=== PATIENT | female | born 1955 | race Caucasian/White ===

== ENCOUNTER 2020-04-11 10:23 | Emergency (ER) | payer SELFPAY ==
[~2020-04-11] VITALS: Ht 160 cm; Wt 52.9 kg
--- NOTE | 2020-04-11 11:16 | NUR ---
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
--- NOTE | 2020-04-11 11:35 | NUR ---
THIS IS A 65 YO F W/ C/O DEPRESSION, INSOMNIA, UNABLE TO EAT, WEAKNESS AND LT SIDED LEG PAIN X2 WEEKS. PT REPORTS SHE LOST HER 6 MONTHS AGO AND BELIEVES HER GRIEF HAS CAUGHT UP TO HER. PT REPORTS FALL 2 WEEKS AGO IN WHICH SHE TWISTED HER ANKLE AND HAS HAD ANKLE/LEG PAIN EVER SINCE. PT REPORTS HX OF TAKING LEXAPRO BUT IS NOT CURRENTLY ON ANY MOOD STABLIZERS. DENIES SI/HI. PT TACHYCARDIC, OTHER VS WDL. PT RESTING ON GURNEY W/ CALL LIGHT IN REACH AND FAMILY AT BEDSIDE. AWAITING ED EVAL.
[2020-04-11] MEDS ORDERED: LOSARTAN (11:43)
[2020-04-11] MEDS ORDERED: ATORVASTATIN (11:43)
[2020-04-11] MEDS ORDERED: HYDROCHLOROTHIAZIDE (11:43)
[2020-04-11] MEDS ORDERED: hydrOXyzine 50MG TABLET ONE (12:00)
[2020-04-11 12:24] VITALS: BP 95/69
== END 2020-04-11 12:27 | disposition home or self-care (01) ==
LOC: ED 12:21
DX: F41.1 Generalized anxiety disorder (principal); F32.9 Major depressive disorder, single episode, unspecified; E78.00 Pure hypercholesterolemia, unspecified; I10 Essential (primary) hypertension; F17.200 Nicotine dependence, unspecified, uncomplicated
CPT/HCPCS: 99283; Q0177

== ENCOUNTER 2020-06-13 07:31 | Inpatient (IN) | payer SELFPAY ==
[~2020-06-13] VITALS: Ht 160 cm; Wt 51.5 kg
[~2020-06-13 07:31] MED LIST: ATORVASTATIN; HYDROCHLOROTHIAZIDE; LOSARTAN
[2020-06-13] MEDS ORDERED: SODIUM CHLORIDE 0.9% 1,000 ML IV ONE (07:34)
--- NOTE | 2020-06-13 07:34 | NUR ---
Pt brought in by [facility] from home with chief complaint of failure to thrive, weakness, n/v/d, near syncopal event. Upon arrival of EMS pt found to be in afib with RVR. Metoprolol 5 mg administered. THe patient arrives A&O,VSS with complaints of chest pain, and sore throat.
--- NOTE | 2020-06-13 07:49 | NUR ---
REPORT RECEIVED, CARE ASSUMED PT AFIB PER MONITOR. AUTO BP AND PULSE OX IN PLACE. PT AWARE OF URINE SPECIMAN NEEDED. LAB AT BEDSIDE TO DRAW BLOOD. PT UPDATED ON POC.
[2020-06-13] MEDS ORDERED: LOSA25TA25 PO (07:55)
[2020-06-13] MEDS ORDERED: ATOR20TA37 PO (07:55)
[2020-06-13] MEDS ORDERED: SODIUM CHLORIDE FLUSH 10ML SYR IVF ONE (08:00)
[2020-06-13] MEDS ORDERED: SODIUM CHLORIDE 0.9% 1,000ML IVBOLUS ONE ×2 (08:00→10:30)
[2020-06-13 08:02] LABS: BASOPHILS # (AUTO) 0.02 x10^3/uL (0-0.1); BASOPHILS % (AUTO) 0 % (0-1); EOSINOPHILS # (AUTO) 0.01 x10^3/uL (0-0.4); EOSINOPHILS % (AUTO) 0 % (1-7); LYMPHOCYTES # (AUTO) 0.75 x10^3/uL (1-3.4); LYMPHOCYTES % (AUTO) 6 % (22-44); MD NO; MEAN CORPUSCULAR HEMOGLOBIN 30.6 pg (27.0-34.8); MEAN CORPUSCULAR HGB CONC 32.6 g/dL (32.4-35.8); MEAN CORPUSCULAR VOLUME 93.7 fL (80-100); MEAN PLATELET VOLUME 7.5 fL (7.4-10.4); MONOCYTES # (AUTO) 0.88 x10^3/uL (0.2-0.8); MONOCYTES % (AUTO) 7 % (2-9); NEUTROPHILS # (AUTO) 10.83 x10^3/uL (1.8-6.8); NEUTROPHILS % (AUTO) 87 % (42-75); PLATELET COUNT 444 x10^3/uL (130-400); RED BLOOD COUNT 3.83 x10^6/uL (3.82-5.3); RED CELL DISTRIBUTION WIDTH 16.1 % (9.6-15.2)
--- NOTE | 2020-06-13 08:18 | NUR ---
PT INCONT OF STOOL, SAMPLE COLLECTED AND TAKEN TO LAB. ASSIST WITH DENNIS CARE. PT DENNIS AREA/BUTTOCKS REDDENED. MC URINE COLLECTED AFTER EXPLAINING PROCEDURE TO PT. PT DARIAN WELL. IV FLUIDS INFUSING ORDERED.
[2020-06-13 08:19] LABS: ALANINE AMINOTRANSFERASE 41 U/L (12-78); ALBUMIN 1.8 g/dL (3.4-5.0); ANION GAP 17 mmol/L (5-15); CALCIUM 8.1 mg/dL (8.5-10.1); CHLORIDE 95 mmol/L (98-107); CREATININE 0.85 mg/dL (0.55-1.02)
[2020-06-13 08:23] LABS: ALKALINE PHOSPHATASE 214 U/L (45-117); BILIRUBIN,TOTAL 1.2 mg/dL (0.2-1.0); TROPONIN I 0.951 ng/mL (0.000-0.045)
[2020-06-13] MEDS ORDERED: POTASSIUM CHLORIDE 40 MEQ in SODIUM CHLORIDE 0.9% 1,000 ML IV ONE (08:29)
[2020-06-13] MEDS ORDERED: POTASSIUM CHLORIDE 20 MEQ TAB.ER.PRT PO ONE ×3 (08:30→21:30)
[2020-06-13 08:31] LABS: INTERNATIONAL NORMALIZED RATIO 1.05 (0.93-1.1); PROTHROMBIN TIME 11.1 Seconds (9.6-11.5)
[2020-06-13 08:41] LABS: MICROSCOPIC INDICATED
[2020-06-13] MEDS ORDERED: NS + 40MEQ KCL 1,000 ML IV ONE (08:43)
[2020-06-13] MEDS ORDERED: POTASSIUM CHLORIDE 20 MEQ TAB.ER.PRT ONE (08:43)
--- NOTE | 2020-06-13 09:01 | NUR ---
PT ASSISTED TO BSC, INCREASED HR, DIFFICULTY SWALLOWING KCL ORAL. REPORT TO NISHA RESENDEZ.
[2020-06-13] MEDS ORDERED: MAGNESIUM SULFATE PMX 2GM/50ML 50 ML ONE (09:03)
[2020-06-13] MEDS ORDERED: METOPROLOL 1 MG/ML, 5ML ONE (09:03)
--- NOTE | 2020-06-13 09:13 | NUR ---
BEDSIDE REPORT FROM TAMARA RESENDEZ POTASSIUM REPLETION INITIATED. PROVIDER ASKED FOR MAGNESIUM ORDERS WELL TO ASSIST ABSORPTION TO CT SCAN AT 0910
--- NOTE | 2020-06-13 09:15 | NUR ---
POST LOPRESSOR HR IMPROVED FROM 140 TO 110 [id number]
[2020-06-13 09:21] LABS: CLOSTRIDIUM DIFFICILE ANTIGEN POSITIVE; CLOSTRIDIUM DIFFICILE TOXIN NEGATIVE (Negative)
--- NOTE | 2020-06-13 09:22 | NUR ---
REPORT RECEIVED FROM LABORATORY FOR CDIFF POSITIVE STOOL SAMPLE PROVIDER MADE AWARE
--- NOTE | 2020-06-13 09:25 | NUR ---
PLACED ON SPECIAL CONTACT ISOLATION FOR CDIFF DIARRHEA TO COMMODE X3-BARRIER CREAM APPLIED TO PERINEUM
[2020-06-13] MEDS ORDERED: OMNIPAQUE 350 MG/ML, 100ML BOTTLE ONE ×2 (09:28→13:00)
[2020-06-13] MEDS ORDERED: METOPROLOL 1 MG/ML, 5ML IVPush ONE (09:30)
[2020-06-13] MEDS ORDERED: MAGNESIUM SULFATE PMX 2GM/50ML 50 ML IV ONE ×2 (09:30→12:30)
[2020-06-13] MEDS ORDERED: MORPHINE SULFATE 4 MG/ML, 1ML ONE (09:56)
[2020-06-13] MEDS ORDERED: ONDANSETRON 2MG/ML, 2ML IVPush ONE (10:00)
[2020-06-13] MEDS ORDERED: MORPHINE SULFATE 4 MG/ML, 1ML IVPush PRN (10:00)
[2020-06-13] MEDS ORDERED: CEFOTETAN PMX 1GM/50ML 50 ML IV ONE (10:00)
[2020-06-13] MEDS ORDERED: METRONIDAZOLE PMX 500MG/100ML 100 ML IV ONE (10:00)
[2020-06-13] MEDS ORDERED: SODIUM CHLORIDE FLUSH 10ML SYR IVF PRN (10:30)
[2020-06-13] MEDS ORDERED: PIPERACILLIN/TAZO/PMX 3.375GM 50 ML IV ONE (10:30)
[2020-06-13] MEDS: HYDROmorphone 2 MG/ML, 1ML IVPush PRN ×2 (10:30→13:31)
[2020-06-13] MEDS ORDERED: VANCOMYCIN 50 MG/ML ORAL SUSP PO SCH (10:30)
[2020-06-13] MEDS ORDERED: VANCOMYCIN 50 MG/ML ORAL SUSP PO ONE (10:30)
[2020-06-13] MEDS ORDERED: HYDROmorphone 1 MG/ML, 1ML INJ ONE ×2 (10:31→13:28)
[2020-06-13] MEDS ORDERED: PIPERACILLIN/TAZO/PMX 3.375GM 50 ML ONE (10:50)
--- NOTE | 2020-06-13 10:54 | NUR ---
PAIN MEDICATIPN IMPROVED ABD CRAMPING FROM 08/23 TO 01/21 MOVED TO HOSPITAL BED MEDICATED PER EMAR WITH PO ABX (250MG OF VANCOMYCIN) WELL IV ZOSYN AFTER CONFIRMATION BLOOD CULTURES ALREADY DRAWN HR NOW 71, 105/68
--- NOTE | 2020-06-13 11:47 | NUR ---
Dr. Rocha (hospitalist) at bedside to admit With reassessment abd cramping improved to 4/10 Hr remains sinus 60-70, however 81/47- Dr. Rocha made aware that patient sufficiently fluid resuscitated (narcotics vs metoprolol?) He plan to keep patient with tele orders as lactate unremarkable (he believes her normal blood pressure +/- 90)
[2020-06-13] MEDS ORDERED: POLYETHYLENE GLYCOL 17 GM PACKET PO PRN (12:00)
[2020-06-13] MEDS ORDERED: DOCUSATE 100 MG CAPSULE PO PRN (12:00)
[2020-06-13] MEDS ORDERED: POTASSIUM CHLORIDE 40 MEQ in SODIUM CHLORIDE 0.9% 500 ML IV ONE (12:00)
[2020-06-13] MEDS ORDERED: NS + 40MEQ KCL 1,000 ML IV SCH (12:00)
[2020-06-13] MEDS ORDERED: ONDANSETRON 2MG/ML, 2ML IVPush PRN (12:00)
[2020-06-13] MEDS ORDERED: ONDANSETRON ODT 4 MG PO PRN (12:00)
[2020-06-13] MEDS ORDERED: PIPERACILLIN/TAZO/PMX 3.375GM 50 ML IV SCH (12:00)
--- NOTE | 2020-06-13 12:57 | NUR ---
PHARMACY CALLED TO RE-SCHEDULE PO VANCOMYCIN TO 4:45PM
--- NOTE | 2020-06-13 13:07 | NUR ---
MANAGER COMMUNITY CALLED DR. ESCAMILLA TO CLARIFY MED ORDERS - TX OF +TROP (DEMAND ISCHEMIA-SCHEDULED LOVENOX SUFFICIENT (NO NEED FOR ASA OR HEPARIN) - CHANGE MAINT TO NS +40K TO 100ML/HR - NO ADDITIONAL MAG NEEDED (ALREADY GIVEN 2GM) - ICE CHIPS PERMISSABLE - ONLY ABC NEEDED IS ZOSYN (Q6)
[2020-06-13] MEDS ORDERED: ENOXAPARIN 40 MG/0.4 ML ONE (13:11)
[2020-06-13] MEDS: ENOXAPARIN 40 MG/0.4 ML SQ SCH (13:18)
[2020-06-13] MEDS: NS + 40MEQ KCL 1,000 ML IV SCH (13:21)
[2020-06-13 14:10] VITALS: BP 77/56
[2020-06-13 14:58] LABS: ANION GAP 15 mmol/L (5-15); CHLORIDE 108 mmol/L (98-107)
[2020-06-13 15:03] LABS: CREATININE 0.74 mg/dL (0.55-1.02); TROPONIN I 0.617 ng/mL (0.000-0.045)
[2020-06-13] MEDS: PIPERACILLIN/TAZO/PMX 3.375GM 50 ML IV SCH ×2 (17:25→23:00)
[2020-06-13] MEDS: VANCOMYCIN 50 MG/ML ORAL SUSP PO SCH ×2 (17:25→23:00)
[2020-06-13] MEDS: NOREPINEPHRINE 8 MG in SODIUM CHLORIDE 0.9% 242 ML IV PRN (17:40)
[2020-06-13 20:36] LABS: ANION GAP 11 mmol/L (5-15); CALCIUM 7.3 mg/dL (8.5-10.1); CHLORIDE 107 mmol/L (98-107); CREATININE 0.68 mg/dL (0.55-1.02)
[2020-06-13] MEDS ORDERED: POTASSIUM CHLORIDE 40 MEQ in SODIUM CHLORIDE 0.9% 100 ML IV ONE (21:30)
[2020-06-13] MEDS ORDERED: LORazepam 1MG TABLET PO ONE (22:00)
[2020-06-14 02:49] LABS: ALANINE AMINOTRANSFERASE 36 U/L (12-78); ALBUMIN 1.5 g/dL (3.4-5.0); ANION GAP 9 mmol/L (5-15); CHLORIDE 111 mmol/L (98-107); CREATININE 0.73 mg/dL (0.55-1.02)
[2020-06-14 02:57] LABS: BASOPHILS % (AUTO) 0 % (0-1); EOSINOPHILS # (AUTO) 0.12 x10^3/uL (0-0.4); EOSINOPHILS % (AUTO) 1 % (1-7); LYMPHOCYTES # (AUTO) 0.93 x10^3/uL (1-3.4); LYMPHOCYTES % (AUTO) 9 % (22-44); MD NO; MEAN CORPUSCULAR HEMOGLOBIN 30.7 pg (27.0-34.8); MEAN CORPUSCULAR HGB CONC 32.7 g/dL (32.4-35.8); MEAN CORPUSCULAR VOLUME 94.2 fL (80-100); MEAN PLATELET VOLUME 8.1 fL (7.4-10.4); MONOCYTES # (AUTO) 0.64 x10^3/uL (0.2-0.8); MONOCYTES % (AUTO) 6 % (2-9); NEUTROPHILS # (AUTO) 8.28 x10^3/uL (1.8-6.8); NEUTROPHILS % (AUTO) 83 % (42-75); PLATELET COUNT 315 x10^3/uL (130-400); RED BLOOD COUNT 2.89 x10^6/uL (3.82-5.3)
[2020-06-14 03:00] LABS: ALKALINE PHOSPHATASE 151 U/L (45-117); BILIRUBIN,TOTAL 0.6 mg/dL (0.2-1.0); TOTAL PROTEIN 5.2 g/dL (6.4-8.2)
[2020-06-14] MEDS ORDERED: MAGNESIUM SULFATE 1 GM in SODIUM CHLORIDE 0.9% 50 ML IV ONE (03:30)
[2020-06-14] MEDS ORDERED: POTASSIUM CHLORIDE 10% 40 MEQ/30 ML UDC PO ONE (03:30)
[2020-06-14] MEDS ORDERED: POTASSIUM CHLORIDE 40 MEQ in SODIUM CHLORIDE 0.9% 100 ML IV ONE ×2 (03:30→16:00)
[2020-06-14 04:08] VITALS: BP 125/77
[2020-06-14] MEDS: NS + 40MEQ KCL 1,000 ML IV SCH (04:39)
[2020-06-14] MEDS: PIPERACILLIN/TAZO/PMX 3.375GM 50 ML IV SCH ×4 (06:21→23:15)
[2020-06-14] MEDS: VANCOMYCIN 50 MG/ML ORAL SUSP PO SCH ×4 (06:21→23:00)
[2020-06-14 08:21] LABS: ANION GAP 9 mmol/L (5-15); CALCIUM 7.1 mg/dL (8.5-10.1); CHLORIDE 114 mmol/L (98-107)
[2020-06-14 08:22] LABS: CREATININE 0.62 mg/dL (0.55-1.02)
[2020-06-14] MEDS ORDERED: PHENOBARBITAL SODIUM 520 MG in SODIUM CHLORIDE 0.9% 50 ML IVPB ONE (10:00)
[2020-06-14] MEDS ORDERED: NALOXONE 1 MG/ML, 2ML ONE (12:06)
[2020-06-14] MEDS ORDERED: MIDAZOLAM 1 MG/ML, 5ML ONE (12:06)
[2020-06-14] MEDS ORDERED: FENTANYL PF 100 MCG/2ML ONE (12:08)
[2020-06-14] MEDS ORDERED: LIDOCAINE 1%, 10ML ONE (12:09)
[2020-06-14] MEDS ORDERED: FLUMAZENIL 0.1 MG/1 ML, 5ML ONE (12:09)
[2020-06-14] MEDS ORDERED: SODIUM CHLORIDE 0.9% IV ONE (14:00)
[2020-06-14] MEDS ORDERED: PHENOBARBITAL SODIUM IV ONE (14:00)
[2020-06-14] MEDS: ENOXAPARIN 40 MG/0.4 ML SQ SCH (14:25)
[2020-06-14] MEDS: DEXMEDETOMIDINE 200 MCG in SODIUM CHLORIDE 0.9% 48 ML IV PRN ×2 (14:27→19:52)
[2020-06-14] MEDS ORDERED: MORPHINE SULFATE 4 MG/ML, 1ML IVPush PRN (14:30)
[2020-06-14] MEDS ORDERED: POTASSIUM PHOSPHATE 44 MEQ in SODIUM CHLORIDE 0.9% 500 ML IV ONE (14:30)
[2020-06-14] MEDS: METRONIDAZOLE PMX 500MG/100ML 100 ML IV SCH (18:48)
[2020-06-14] MEDS: PANTOPRAZOLE 40 MG IV IVPush SCH (18:48)
[2020-06-14] MEDS: PHENOBARBITAL SODIUM 65 MG/ML, 1ML IM SCH (23:15)
[2020-06-15] MEDS: METRONIDAZOLE PMX 500MG/100ML 100 ML IV SCH ×3 (01:19→17:07)
[2020-06-15] MEDS: DEXMEDETOMIDINE 200 MCG in SODIUM CHLORIDE 0.9% 48 ML IV PRN ×5 (02:33→22:45)
[2020-06-15] MEDS: VANCOMYCIN 50 MG/ML ORAL SUSP PO SCH ×4 (05:00→22:49)
[2020-06-15 05:09] LABS: ALBUMIN 1.5 g/dL (3.4-5.0); ANION GAP 10 mmol/L (5-15); CALCIUM 7.4 mg/dL (8.5-10.1); CHLORIDE 119 mmol/L (98-107)
[2020-06-15 05:11] VITALS: BP 117/76
[2020-06-15 05:13] LABS: ALANINE AMINOTRANSFERASE 47 U/L (12-78); ALKALINE PHOSPHATASE 211 U/L (45-117); BILIRUBIN,TOTAL 0.8 mg/dL (0.2-1.0); CREATININE 0.65 mg/dL (0.55-1.02); TOTAL PROTEIN 5.2 g/dL (6.4-8.2)
[2020-06-15 05:18] LABS: BASOPHILS # (AUTO) 0.02 x10^3/uL (0-0.1); BASOPHILS % (AUTO) 0 % (0-1); EOSINOPHILS # (AUTO) 0.02 x10^3/uL (0-0.4); EOSINOPHILS % (AUTO) 0 % (1-7); LYMPHOCYTES # (AUTO) 0.85 x10^3/uL (1-3.4); LYMPHOCYTES % (AUTO) 10 % (22-44); MD NO; MEAN CORPUSCULAR HEMOGLOBIN 31.4 pg (27.0-34.8); MEAN CORPUSCULAR VOLUME 95.2 fL (80-100); MEAN PLATELET VOLUME 8.2 fL (7.4-10.4); MONOCYTES # (AUTO) 0.37 x10^3/uL (0.2-0.8); MONOCYTES % (AUTO) 4 % (2-9); NEUTROPHILS # (AUTO) 7.23 x10^3/uL (1.8-6.8); NEUTROPHILS % (AUTO) 85 % (42-75); PLATELET COUNT 226 x10^3/uL (130-400); RED BLOOD COUNT 2.71 x10^6/uL (3.82-5.3)
[2020-06-15] MEDS: PIPERACILLIN/TAZO/PMX 3.375GM 50 ML IV SCH ×4 (05:20→22:55)
[2020-06-15] MEDS ORDERED: DEXTROSE 5% 1,000 ML IV SCH (06:30)
[2020-06-15] MEDS: NOREPINEPHRINE 8 MG in SODIUM CHLORIDE 0.9% 242 ML IV PRN (07:31)
[2020-06-15] MEDS ORDERED: SODIUM CHLORIDE 0.9% 1,000ML IVBOLUS ONE ×2 (08:00→13:00)
[2020-06-15] MEDS: PANTOPRAZOLE 40 MG IV IVPush SCH (08:25)
[2020-06-15] MEDS ORDERED: PHARMACY INSTRUCTION MC PRN (09:30)
[2020-06-15] MEDS ORDERED: DEXTROSE 4 GM TAB.CHEW PO PRN (10:00)
[2020-06-15] MEDS ORDERED: FENTANYL PF 100 MCG/2ML IVPush PRN (10:00)
[2020-06-15] MEDS ORDERED: PHARMACY MAY ADJ FOR RENAL FX MC SCH (10:00)
[2020-06-15] MEDS ORDERED: DOCUSATE 50 MG/5 ML, 10ML UDC PO PRN (10:00)
[2020-06-15] MEDS ORDERED: DEXTROSE 50%, 50ML SYRINGE IVPush PRN (10:00)
[2020-06-15] MEDS ORDERED: SENNA 176 MG/5 ML ORAL SOL NG PRN (10:00)
[2020-06-15] MEDS ORDERED: LIDOCAINE-MPF 1%, 2ML ENDO PRN (10:00)
[2020-06-15] MEDS ORDERED: GLUCAGON 1 MG IM PRN (10:00)
[2020-06-15] MEDS ORDERED: LACTULOSE 20 GM/30 ML UDC NG PRN (10:00)
[2020-06-15] MEDS ORDERED: BISACODYL 10 MG SUPP PR PRN (10:00)
[2020-06-15] MEDS ORDERED: SENNA/DOCUSATE TABLET NG PRN (10:00)
[2020-06-15] MEDS: BUDESONIDE 0.5 MG/2 ML INHA INH SCH ×2 (10:10→20:22)
[2020-06-15] MEDS: ALBUTEROL/IPRATROPIUM 2.5MG/0.5MG, 3 ML HHN SCH ×3 (10:10→19:10)
[2020-06-15] MEDS: SODIUM CHLORIDE FLUSH 10ML SYR IVF SCH ×2 (10:12→22:23)
[2020-06-15] MEDS: PHENOBARBITAL SODIUM 65 MG/ML, 1ML IM SCH ×2 (10:26→22:24)
[2020-06-15] MEDS: THIAMINE 200 MG in SODIUM CHLORIDE 0.9% 50 ML IV SCH (10:27)
[2020-06-15] MEDS ORDERED: ETOMIDATE 20 MG/10 ML IVPush ONE (10:30)
[2020-06-15] MEDS ORDERED: MAGNESIUM SULFATE PMX 2GM/50ML 50 ML IV ONE (11:00)
[2020-06-15] MEDS: ENOXAPARIN 40 MG/0.4 ML SQ SCH (11:36)
[2020-06-15 15:36] LABS: ANION GAP 13 mmol/L (5-15); CALCIUM 6.9 mg/dL (8.5-10.1); CHLORIDE 121 mmol/L (98-107); CREATININE 0.65 mg/dL (0.55-1.02)
[2020-06-15] MEDS ORDERED: POTASSIUM CHLORIDE 40 MEQ in SODIUM CHLORIDE 0.9% 100 ML IV ONE (16:00)
[2020-06-15] MEDS ORDERED: CALCIUM GLUCONATE 9.2 MEQ in SODIUM CHLORIDE 0.9% 100 ML IV ONE (16:00)
[2020-06-15] MEDS ORDERED: OMNIPAQUE 350 MG/ML, 100ML BOTTLE ONE (16:22)
[2020-06-15] MEDS ORDERED: SUCCINYLCHOLINE 20 MG/ML, 10ML ONE (16:25)
[2020-06-15] MEDS ORDERED: PROPOFOL 10 MG/ML, 100ML IV ONE (16:25)
[2020-06-15] MEDS ORDERED: ETOMIDATE 20 MG/10 ML ONE (16:25)
[2020-06-15] MEDS: DEXMEDETOMIDINE 400 MCG in SODIUM CHLORIDE 0.9% 96 ML IV PRN (16:30)
[2020-06-15] MEDS: FENTANYL PF 100 MCG/2ML IVPush PRN (17:30)
[2020-06-15] MEDS: SODIUM BICARBONATE 8.4% 150 MEQ in DEXTROSE 5% 1,000 ML IV SCH (18:06)
[2020-06-16] MEDS: METRONIDAZOLE PMX 500MG/100ML 100 ML IV SCH ×3 (01:02→17:00)
[2020-06-16] MEDS: FENTANYL PF 100 MCG/2ML IVPush PRN ×2 (01:41→07:48)
[2020-06-16] MEDS: DEXMEDETOMIDINE 400 MCG in SODIUM CHLORIDE 0.9% 96 ML IV PRN ×5 (01:41→23:19)
[2020-06-16] MEDS: ALBUTEROL/IPRATROPIUM 2.5MG/0.5MG, 3 ML HHN SCH ×4 (03:00→21:00)
[2020-06-16 04:00] VITALS: BP 108/18
[2020-06-16] MEDS: SODIUM BICARBONATE 8.4% 150 MEQ in DEXTROSE 5% 1,000 ML IV SCH (04:00)
[2020-06-16 04:21] LABS: BASOPHILS # (AUTO) 0.01 x10^3/uL (0-0.1); BASOPHILS % (AUTO) 0 % (0-1); EOSINOPHILS # (AUTO) 0.03 x10^3/uL (0-0.4); EOSINOPHILS % (AUTO) 0 % (1-7); LYMPHOCYTES # (AUTO) 0.98 x10^3/uL (1-3.4); LYMPHOCYTES % (AUTO) 10 % (22-44); MD NO; MEAN CORPUSCULAR HEMOGLOBIN 31.5 pg (27.0-34.8); MEAN CORPUSCULAR HGB CONC 33.1 g/dL (32.4-35.8); MEAN CORPUSCULAR VOLUME 95.1 fL (80-100); MONOCYTES # (AUTO) 0.23 x10^3/uL (0.2-0.8); MONOCYTES % (AUTO) 3 % (2-9); NEUTROPHILS # (AUTO) 8.15 x10^3/uL (1.8-6.8); NEUTROPHILS % (AUTO) 87 % (42-75); PLATELET COUNT 223 x10^3/uL (130-400); RED BLOOD COUNT 2.65 x10^6/uL (3.82-5.3); RED CELL DISTRIBUTION WIDTH 16.5 % (9.6-15.2)
[2020-06-16 04:33] LABS: ANION GAP 12 mmol/L (5-15); CALCIUM 7.4 mg/dL (8.5-10.1); CHLORIDE 117 mmol/L (98-107); CREATININE 0.85 mg/dL (0.55-1.02)
[2020-06-16] MEDS: VANCOMYCIN 50 MG/ML ORAL SUSP PO SCH ×4 (05:18→23:23)
[2020-06-16] MEDS: PIPERACILLIN/TAZO/PMX 3.375GM 50 ML IV SCH ×4 (05:18→23:24)
[2020-06-16] MEDS ORDERED: POTASSIUM CHLORIDE 40 MEQ in SODIUM CHLORIDE 0.9% 100 ML IV ONE ×2 (06:30→22:00)
[2020-06-16] MEDS: BUDESONIDE 0.5 MG/2 ML INHA INH SCH ×2 (07:15→21:00)
[2020-06-16] MEDS: KSCALE TO 4.5 IV SCH ×3 (08:29→20:30)
[2020-06-16] MEDS: DEXTROSE 5% 1,000 ML IV SCH ×2 (08:42→23:24)
[2020-06-16] MEDS: PHENOBARBITAL SODIUM 65 MG/ML, 1ML IM SCH (09:16)
[2020-06-16] MEDS: PANTOPRAZOLE 40 MG IV IVPush SCH (09:16)
[2020-06-16] MEDS: SODIUM CHLORIDE FLUSH 10ML SYR IVF SCH ×2 (09:18→21:00)
[2020-06-16] MEDS: THIAMINE 200 MG in SODIUM CHLORIDE 0.9% 50 ML IV SCH (09:20)
[2020-06-16] MEDS: MIDAZOLAM 1 MG/ML, 2ML IVPush PRN ×5 (10:00→17:00)
[2020-06-16] MEDS: ENOXAPARIN 40 MG/0.4 ML SQ SCH (11:31)
[2020-06-16] MEDS ORDERED: MIDAZOLAM HCL 50 MG in SODIUM CHLORIDE 0.9% 40 ML IV PRN (17:30)
[2020-06-16] MEDS ORDERED: PHENOBARBITAL SODIUM 65 MG/ML, 1ML IM SCH (22:00)
[2020-06-17] MEDS: METRONIDAZOLE PMX 500MG/100ML 100 ML IV SCH ×3 (01:26→16:22)
[2020-06-17] MEDS: KSCALE TO 4.5 IV SCH ×4 (02:30→22:33)
[2020-06-17] MEDS: ALBUTEROL/IPRATROPIUM 2.5MG/0.5MG, 3 ML HHN SCH ×2 (02:37→06:45)
[2020-06-17 03:11] LABS: ALBUMIN 1.3 g/dL (3.4-5.0); BILIRUBIN, DIRECT 0.3 mg/dL (0.1-0.2); CALCIUM 7.1 mg/dL (8.5-10.1); CHLORIDE 118 mmol/L (98-107)
[2020-06-17 03:15] LABS: BASOPHILS # (AUTO) 0.04 x10^3/uL (0-0.1); BASOPHILS % (AUTO) 0 % (0-1); EOSINOPHILS # (AUTO) 0.06 x10^3/uL (0-0.4); EOSINOPHILS % (AUTO) 1 % (1-7); LYMPHOCYTES # (AUTO) 1.51 x10^3/uL (1-3.4); LYMPHOCYTES % (AUTO) 15 % (22-44); MD NO; MEAN CORPUSCULAR HEMOGLOBIN 30.9 pg (27.0-34.8); MEAN CORPUSCULAR HGB CONC 32.9 g/dL (32.4-35.8); MEAN PLATELET VOLUME 8.3 fL (7.4-10.4); MONOCYTES # (AUTO) 0.44 x10^3/uL (0.2-0.8); MONOCYTES % (AUTO) 5 % (2-9); NEUTROPHILS # (AUTO) 7.86 x10^3/uL (1.8-6.8); NEUTROPHILS % (AUTO) 79 % (42-75); PLATELET COUNT 200 x10^3/uL (130-400); RED BLOOD COUNT 2.66 x10^6/uL (3.82-5.3); RED CELL DISTRIBUTION WIDTH 16.5 % (9.6-15.2)
[2020-06-17 03:37] LABS: ALANINE AMINOTRANSFERASE 180 U/L (12-78); ALKALINE PHOSPHATASE 175 U/L (45-117); ANION GAP 8 mmol/L (5-15); BILIRUBIN,INDIRECT 0.2 mg/dL (0.0-2.0); BILIRUBIN,TOTAL 0.5 mg/dL (0.2-1.0); CREATININE 0.64 mg/dL (0.55-1.02); TOTAL PROTEIN 4.5 g/dL (6.4-8.2)
[2020-06-17] MEDS ORDERED: POTASSIUM CHLORIDE 30 MEQ in SODIUM CHLORIDE 0.9% 100 ML IV ONE ×3 (04:00→23:30)
[2020-06-17] MEDS: DEXMEDETOMIDINE 400 MCG in SODIUM CHLORIDE 0.9% 96 ML IV PRN ×2 (04:08→11:40)
[2020-06-17 04:15] VITALS: BP 130/90
[2020-06-17] MEDS: VANCOMYCIN 50 MG/ML ORAL SUSP PO SCH ×4 (05:14→22:33)
[2020-06-17] MEDS: PIPERACILLIN/TAZO/PMX 3.375GM 50 ML IV SCH ×4 (05:14→22:34)
[2020-06-17] MEDS ORDERED: MAGNESIUM SULFATE PMX 2GM/50ML 50 ML IV ONE (06:30)
[2020-06-17] MEDS: BUDESONIDE 0.5 MG/2 ML INHA INH SCH (06:45)
[2020-06-17] MEDS: SODIUM CHLORIDE FLUSH 10ML SYR IVF SCH ×2 (07:54→21:00)
[2020-06-17] MEDS: DEXTROSE 5% 1,000 ML IV SCH ×2 (07:55→21:06)
[2020-06-17] MEDS: THIAMINE 200 MG in SODIUM CHLORIDE 0.9% 50 ML IV SCH (07:55)
[2020-06-17] MEDS: PANTOPRAZOLE 40 MG IV IVPush SCH (07:56)
[2020-06-17] MEDS ORDERED: POTASSIUM CHLORIDE PMX 100 ML IV ONE (11:00)
[2020-06-17] MEDS ORDERED: LORazepam 2 MG/ML, 1ML IV PRN ×4 (11:30)
[2020-06-17] MEDS: CHLORDIAZEPOXIDE 25 MG CAPSULE PO SCH ×3 (11:39→21:06)
[2020-06-17] MEDS: ENOXAPARIN 40 MG/0.4 ML SQ SCH (11:39)
[2020-06-17] MEDS: LORazepam 2 MG/ML, 1ML IV PRN ×2 (13:17→23:24)
[2020-06-17] MEDS ORDERED: SODIUM CHLORIDE 0.9%, 500ML IVBOLUS ONE (23:00)
[2020-06-18] MEDS: METRONIDAZOLE PMX 500MG/100ML 100 ML IV SCH ×3 (01:01→17:01)
[2020-06-18 04:11] LABS: O2 FLOW 0 L/min
[2020-06-18] MEDS ORDERED: FUROSEMIDE 20 MG/2 ML ONE (04:29)
[2020-06-18] MEDS ORDERED: FUROSEMIDE 20 MG/2 ML IV ONE ×2 (04:30→16:30)
[2020-06-18] MEDS: PIPERACILLIN/TAZO/PMX 3.375GM 50 ML IV SCH ×3 (04:33→20:16)
[2020-06-18] MEDS: KSCALE TO 4.5 IV SCH (04:33)
[2020-06-18] MEDS: VANCOMYCIN 50 MG/ML ORAL SUSP PO SCH ×4 (04:33→23:18)
[2020-06-18] MEDS: DEXTROSE 5% 1,000 ML IV SCH (04:33)
[2020-06-18] MEDS: LORazepam 2 MG/ML, 1ML IV PRN (04:34)
[2020-06-18 05:01] VITALS: BP 154/96
[2020-06-18 05:08] LABS: BASOPHILS # (AUTO) 0.05 x10^3/uL (0-0.1); BASOPHILS % (AUTO) 1 % (0-1); EOSINOPHILS # (AUTO) 0.21 x10^3/uL (0-0.4); EOSINOPHILS % (AUTO) 2 % (1-7); LYMPHOCYTES # (AUTO) 1.16 x10^3/uL (1-3.4); LYMPHOCYTES % (AUTO) 13 % (22-44); MD NO; MEAN CORPUSCULAR HEMOGLOBIN 31.2 pg (27.0-34.8); MEAN CORPUSCULAR VOLUME 94.4 fL (80-100); MEAN PLATELET VOLUME 8.8 fL (7.4-10.4); MONOCYTES % (AUTO) 7 % (2-9); NEUTROPHILS # (AUTO) 7.09 x10^3/uL (1.8-6.8); NEUTROPHILS % (AUTO) 78 % (42-75); PLATELET COUNT 208 x10^3/uL (130-400); RED BLOOD COUNT 3.02 x10^6/uL (3.82-5.3); RED CELL DISTRIBUTION WIDTH 16.6 % (9.6-15.2)
[2020-06-18 05:16] LABS: CHLORIDE 113 mmol/L (98-107)
[2020-06-18 05:22] LABS: ALANINE AMINOTRANSFERASE 171 U/L (12-78); ALBUMIN 1.5 g/dL (3.4-5.0); ALKALINE PHOSPHATASE 222 U/L (45-117); ANION GAP 6 mmol/L (5-15); BILIRUBIN, DIRECT 0.5 mg/dL (0.1-0.2); BILIRUBIN,INDIRECT 0.4 mg/dL (0.0-2.0); BILIRUBIN,TOTAL 0.9 mg/dL (0.2-1.0); CALCIUM 7.5 mg/dL (8.5-10.1); CREATININE 0.51 mg/dL (0.55-1.02); TOTAL PROTEIN 5.3 g/dL (6.4-8.2); TRIGLYCERIDES 100 mg/dL (50-200)
[2020-06-18] MEDS ORDERED: MAGNESIUM SULFATE PMX 2GM/50ML 50 ML IV ONE (05:30)
[2020-06-18] MEDS ORDERED: POTASSIUM CHLORIDE PMX 100 ML IV ONE ×3 (05:30→19:30)
[2020-06-18] MEDS: THIAMINE 200 MG in SODIUM CHLORIDE 0.9% 50 ML IV SCH (09:02)
[2020-06-18] MEDS: SODIUM CHLORIDE FLUSH 10ML SYR IVF SCH ×3 (09:26→21:00)
[2020-06-18] MEDS: PANTOPRAZOLE 40 MG IV IVPush SCH (09:26)
[2020-06-18] MEDS: CHLORDIAZEPOXIDE 25 MG CAPSULE PO SCH ×3 (09:26→21:12)
[2020-06-18] MEDS ORDERED: PHARMACY INSTRUCTION MC PRN (09:30)
[2020-06-18] MEDS ORDERED: DEXTROSE 50%, 50ML SYRINGE IVPush ONE (10:00)
[2020-06-18] MEDS ORDERED: DEXTROSE 5% 1,000 ML IV SCH (10:00)
[2020-06-18] MEDS ORDERED: DEXTROSE 4 GM TAB.CHEW PO PRN (10:30)
[2020-06-18] MEDS ORDERED: DEXTROSE 50%, 50ML SYRINGE IVPush PRN ×2 (10:30→17:00)
[2020-06-18] MEDS ORDERED: GLUCAGON 1 MG IM PRN (10:30)
[2020-06-18] MEDS: ENOXAPARIN 40 MG/0.4 ML SQ SCH (11:57)
[2020-06-18] MEDS ORDERED: CEFAZOLIN 1,000 MG IM SCH (12:00)
[2020-06-18] MEDS ORDERED: CEFAZOLIN PMX 1GM/50ML 50 ML IV SCH (12:30)
[2020-06-18] MEDS ORDERED: TPN PER PHARMACY MC PRN (14:00)
[2020-06-18] MEDS ORDERED: OMNIPAQUE 350 MG/ML, 100ML BOTTLE ONE (15:52)
[2020-06-18] MEDS ORDERED: DEXTROSE 10% 500 ML IV PRN (17:00)
[2020-06-18] MEDS ORDERED: FAT EMUL IV SCH (17:00)
[2020-06-18] MEDS ORDERED: SMOF TPN IV SCH (17:00)
[2020-06-18] MEDS ORDERED: AMINO ACID 10% IV SCH (17:00)
[2020-06-18] MEDS ORDERED: [UNRECOGNIZED DRUG - OTHER] IV SCH (17:00)
[2020-06-18] MEDS ORDERED: DEXTROSE 70% IV SCH (17:00)
[2020-06-18] MEDS: FILTER, DISP 1.2 MICRON FOR TPN/PVN IV PRN (17:01)
[2020-06-18] MEDS: INSULIN REGULAR LOW DOSE Q6H X 48HRS SQ-INSULIN SCH (21:00)
[2020-06-18] MEDS ORDERED: PHENOBARBITAL SODIUM 65 MG/ML, 1ML IM SCH (22:00)
[2020-06-19] MEDS: METRONIDAZOLE PMX 500MG/100ML 100 ML IV SCH ×3 (00:32→17:21)
[2020-06-19] MEDS: PIPERACILLIN/TAZO/PMX 3.375GM 50 ML IV SCH ×4 (02:11→20:26)
[2020-06-19] MEDS: INSULIN REGULAR LOW DOSE Q6H X 48HRS SQ-INSULIN SCH ×4 (03:00→21:00)
[2020-06-19 04:15] VITALS: BP 110/66
[2020-06-19] MEDS: VANCOMYCIN 50 MG/ML ORAL SUSP PO SCH ×4 (05:14→23:29)
[2020-06-19 06:11] LABS: ALANINE AMINOTRANSFERASE 104 U/L (12-78); ALBUMIN 1.3 g/dL (3.4-5.0); ANION GAP 5 mmol/L (5-15); CALCIUM 7.8 mg/dL (8.5-10.1); CHLORIDE 109 mmol/L (98-107); CREATININE 0.61 mg/dL (0.55-1.02)
[2020-06-19 06:14] LABS: ALKALINE PHOSPHATASE 217 U/L (45-117); BILIRUBIN,TOTAL 0.6 mg/dL (0.2-1.0); PREALBUMIN 3.8 mg/dL (20.0-40.0); TOTAL PROTEIN 4.9 g/dL (6.4-8.2)
[2020-06-19 06:16] LABS: BASOPHILS # (AUTO) 0.01 x10^3/uL (0-0.1); BASOPHILS % (AUTO) 0 % (0-1); EOSINOPHILS # (AUTO) 0.18 x10^3/uL (0-0.4); EOSINOPHILS % (AUTO) 3 % (1-7); LYMPHOCYTES # (AUTO) 0.93 x10^3/uL (1-3.4); LYMPHOCYTES % (AUTO) 13 % (22-44); MD NO; MEAN CORPUSCULAR HEMOGLOBIN 31.2 pg (27.0-34.8); MEAN CORPUSCULAR VOLUME 94.5 fL (80-100); MEAN PLATELET VOLUME 9.3 fL (7.4-10.4); MONOCYTES # (AUTO) 0.65 x10^3/uL (0.2-0.8); MONOCYTES % (AUTO) 9 % (2-9); NEUTROPHILS # (AUTO) 5.34 x10^3/uL (1.8-6.8); NEUTROPHILS % (AUTO) 75 % (42-75); PLATELET COUNT 167 x10^3/uL (130-400); RED BLOOD COUNT 2.52 x10^6/uL (3.82-5.3); RED CELL DISTRIBUTION WIDTH 17.1 % (9.6-15.2)
[2020-06-19] MEDS: SODIUM CHLORIDE FLUSH 10ML SYR IVF SCH ×3 (08:21→20:25)
[2020-06-19] MEDS: CHLORDIAZEPOXIDE 25 MG CAPSULE PO SCH ×2 (08:21→20:26)
[2020-06-19] MEDS: PANTOPRAZOLE 40 MG IV IVPush SCH (08:21)
[2020-06-19] MEDS ORDERED: PHARMACY INSTRUCTION MC PRN (09:30)
[2020-06-19 11:11] LABS: BASOPHILS # (AUTO) 0.01 x10^3/uL (0-0.1); BASOPHILS % (AUTO) 0 % (0-1); EOSINOPHILS # (AUTO) 0.13 x10^3/uL (0-0.4); EOSINOPHILS % (AUTO) 2 % (1-7); LYMPHOCYTES # (AUTO) 0.91 x10^3/uL (1-3.4); LYMPHOCYTES % (AUTO) 14 % (22-44); MD NO; MEAN CORPUSCULAR HEMOGLOBIN 30.4 pg (27.0-34.8); MEAN CORPUSCULAR HGB CONC 32.2 g/dL (32.4-35.8); MEAN CORPUSCULAR VOLUME 94.7 fL (80-100); MEAN PLATELET VOLUME 8.6 fL (7.4-10.4); MONOCYTES # (AUTO) 0.48 x10^3/uL (0.2-0.8); MONOCYTES % (AUTO) 7 % (2-9); NEUTROPHILS # (AUTO) 4.98 x10^3/uL (1.8-6.8); NEUTROPHILS % (AUTO) 77 % (42-75); PLATELET COUNT 179 x10^3/uL (130-400); RED BLOOD COUNT 3.04 x10^6/uL (3.82-5.3); RED CELL DISTRIBUTION WIDTH 16.6 % (9.6-15.2)
[2020-06-19] MEDS: ENOXAPARIN 40 MG/0.4 ML SQ SCH (11:50)
[2020-06-19] MEDS ORDERED: DEXTROSE 70% IV SCH (17:00)
[2020-06-19] MEDS ORDERED: AMINO ACID 10% IV SCH (17:00)
[2020-06-19] MEDS ORDERED: FAT EMUL IV SCH (17:00)
[2020-06-19] MEDS ORDERED: [UNRECOGNIZED DRUG - OTHER] IV SCH (17:00)
[2020-06-19] MEDS ORDERED: SMOF TPN IV SCH (17:00)
[2020-06-19 19:17] VITALS: BP 114/80
[2020-06-19] MEDS: LORazepam 2 MG/ML, 1ML IV PRN (20:25)
[2020-06-19] MEDS: DEXTROSE 5% 1,000 ML IV SCH (20:26)
[2020-06-19] MEDS ORDERED: PHENOBARBITAL SODIUM 65 MG/ML, 1ML IM SCH (22:00)
[2020-06-20] MEDS: METRONIDAZOLE PMX 500MG/100ML 100 ML IV SCH ×3 (01:21→17:47)
[2020-06-20 01:43] VITALS: BP 126/86
[2020-06-20] MEDS: PIPERACILLIN/TAZO/PMX 3.375GM 50 ML IV SCH ×4 (02:05→21:46)
[2020-06-20] MEDS: INSULIN REGULAR LOW DOSE Q6H X 48HRS SQ-INSULIN SCH ×3 (03:00→15:00)
[2020-06-20] MEDS: VANCOMYCIN 50 MG/ML ORAL SUSP PO SCH ×4 (05:14→23:10)
[2020-06-20 05:52] LABS: BASOPHILS # (AUTO) 0.07 x10^3/uL (0-0.1); BASOPHILS % (AUTO) 1 % (0-1); EOSINOPHILS # (AUTO) 0.12 x10^3/uL (0-0.4); EOSINOPHILS % (AUTO) 2 % (1-7); LYMPHOCYTES # (AUTO) 1.29 x10^3/uL (1-3.4); LYMPHOCYTES % (AUTO) 16 % (22-44); MD NO; MEAN CORPUSCULAR HEMOGLOBIN 30.8 pg (27.0-34.8); MEAN CORPUSCULAR HGB CONC 32.7 g/dL (32.4-35.8); MEAN CORPUSCULAR VOLUME 94.2 fL (80-100); MEAN PLATELET VOLUME 9.5 fL (7.4-10.4); MONOCYTES # (AUTO) 0.79 x10^3/uL (0.2-0.8); MONOCYTES % (AUTO) 10 % (2-9); NEUTROPHILS # (AUTO) 5.84 x10^3/uL (1.8-6.8); NEUTROPHILS % (AUTO) 72 % (42-75); PLATELET COUNT 159 x10^3/uL (130-400); RED BLOOD COUNT 2.81 x10^6/uL (3.82-5.3); RED CELL DISTRIBUTION WIDTH 17.4 % (9.6-15.2)
[2020-06-20 06:00] LABS: CHLORIDE 107 mmol/L (98-107)
[2020-06-20 06:13] LABS: ANION GAP 5 mmol/L (5-15); CALCIUM 7.8 mg/dL (8.5-10.1)
[2020-06-20 07:27] VITALS: BP 124/83
[2020-06-20] MEDS: SODIUM CHLORIDE FLUSH 10ML SYR IVF SCH ×2 (08:31→21:46)
[2020-06-20] MEDS: PANTOPRAZOLE 40 MG IV IVPush SCH (08:31)
[2020-06-20] MEDS: CHLORDIAZEPOXIDE 25 MG CAPSULE PO SCH ×2 (08:31→21:46)
[2020-06-20] MEDS ORDERED: PHARMACY INSTRUCTION MC PRN (09:30)
[2020-06-20] MEDS: ENOXAPARIN 40 MG/0.4 ML SQ SCH (10:51)
[2020-06-20 12:48] LABS: IRON LEVEL 55 mcg/dL (50-170); TOTAL IRON BINDING CAPACITY 51 mcg/dL (250-450)
[2020-06-20 12:53] LABS: % IRON SATURATION 108 % (20-55)
[2020-06-20 14:23] VITALS: BP 132/88
[2020-06-20] MEDS: LORazepam 2 MG/ML, 1ML IV PRN (14:53)
[2020-06-20] MEDS ORDERED: [UNRECOGNIZED DRUG - OTHER] IV SCH (17:00)
[2020-06-20] MEDS ORDERED: DEXTROSE 70% IV SCH (17:00)
[2020-06-20] MEDS ORDERED: AMINO ACID 10% IV SCH (17:00)
[2020-06-20] MEDS ORDERED: FAT EMULSIONS IV SCH (17:00)
[2020-06-20] MEDS: ACETAMINOPHEN 325 MG TABLET PO PRN (17:47)
[2020-06-20] MEDS: FILTER, DISP 1.2 MICRON FOR TPN/PVN IV PRN (17:48)
[2020-06-20 19:49] VITALS: BP 133/85
[2020-06-20] MEDS: DEXTROSE 5% 1,000 ML IV SCH (21:46)
[2020-06-21 01:22] VITALS: BP 138/88
[2020-06-21] MEDS: ACETAMINOPHEN 325 MG TABLET PO PRN ×2 (01:30→09:26)
[2020-06-21] MEDS: METRONIDAZOLE PMX 500MG/100ML 100 ML IV SCH ×3 (01:30→17:30)
[2020-06-21] MEDS: PIPERACILLIN/TAZO/PMX 3.375GM 50 ML IV SCH ×4 (03:21→20:59)
[2020-06-21] MEDS: VANCOMYCIN 50 MG/ML ORAL SUSP PO SCH ×4 (05:01→20:58)
[2020-06-21] MEDS: LORazepam 2 MG/ML, 1ML IV PRN (05:01)
[2020-06-21 05:36] LABS: ANION GAP 6 mmol/L (5-15); CALCIUM 8.1 mg/dL (8.5-10.1); CHLORIDE 108 mmol/L (98-107)
[2020-06-21 05:37] LABS: CREATININE 0.47 mg/dL (0.55-1.02); TRIGLYCERIDES 154 mg/dL (50-200)
[2020-06-21 05:41] LABS: MEAN CORPUSCULAR HEMOGLOBIN 30.9 pg (27.0-34.8); MEAN CORPUSCULAR VOLUME 93.5 fL (80-100); MEAN PLATELET VOLUME 9.9 fL (7.4-10.4); PLATELET COUNT 165 x10^3/uL (130-400); RED BLOOD COUNT 2.82 x10^6/uL (3.82-5.3); RED CELL DISTRIBUTION WIDTH 17.5 % (9.6-15.2)
[2020-06-21 06:29] LABS: BASOPHILS # (AUTO) 0.03 x10^3/uL (0-0.1); BASOPHILS % (AUTO) 0 % (0-1); EOSINOPHILS # (AUTO) 0.13 x10^3/uL (0-0.4); EOSINOPHILS % (AUTO) 1 % (1-7); LYMPHOCYTES # (AUTO) 1.62 x10^3/uL (1-3.4); LYMPHOCYTES % (AUTO) 15 % (22-44); MD SCAN; MONOCYTES # (AUTO) 1.04 x10^3/uL (0.2-0.8); MONOCYTES % (AUTO) 10 % (2-9); NEUTROPHILS # (AUTO) 7.69 x10^3/uL (1.8-6.8); NEUTROPHILS % (AUTO) 73 % (42-75)
[2020-06-21 07:25] VITALS: BP 150/94
[2020-06-21] MEDS: INSULIN REGULAR LOW DOSE QDAY SQ-INSULIN SCH (07:30)
[2020-06-21] MEDS: SODIUM CHLORIDE FLUSH 10ML SYR IVF SCH ×2 (08:31→21:00)
[2020-06-21] MEDS: PANTOPRAZOLE 40 MG IV IVPush SCH (08:42)
[2020-06-21] MEDS: CHLORDIAZEPOXIDE 25 MG CAPSULE PO SCH ×2 (08:42→20:59)
[2020-06-21] MEDS: ENOXAPARIN 40 MG/0.4 ML SQ SCH (12:13)
[2020-06-21 13:14] VITALS: BP 134/86
--- NOTE | 2020-06-21 14:41 | NUR ---
REC: [facility] Addendum: 06/21/20 at 1442 by Rosa VARGAS Amended: Links added.
[2020-06-21] MEDS ORDERED: DEXTROSE 70% IV SCH (17:00)
[2020-06-21] MEDS ORDERED: AMINO ACID 10% IV SCH (17:00)
[2020-06-21] MEDS ORDERED: FAT EMULSIONS IV SCH (17:00)
[2020-06-21] MEDS ORDERED: [UNRECOGNIZED DRUG - OTHER] IV SCH (17:00)
[2020-06-21 19:41] VITALS: BP 121/81
[2020-06-21] MEDS: DEXTROSE 5% 1,000 ML IV SCH (23:32)
[2020-06-22] MEDS: METRONIDAZOLE PMX 500MG/100ML 100 ML IV SCH ×3 (01:05→16:18)
[2020-06-22 01:18] VITALS: BP 121/82
[2020-06-22] MEDS: VANCOMYCIN 50 MG/ML ORAL SUSP PO SCH ×4 (02:22→20:12)
[2020-06-22] MEDS: PIPERACILLIN/TAZO/PMX 3.375GM 50 ML IV SCH ×4 (03:05→21:17)
[2020-06-22 04:38] LABS: BASOPHILS # (AUTO) 0.03 x10^3/uL (0-0.1); BASOPHILS % (AUTO) 0 % (0-1); EOSINOPHILS # (AUTO) 0.18 x10^3/uL (0-0.4); EOSINOPHILS % (AUTO) 2 % (1-7); LYMPHOCYTES # (AUTO) 1.47 x10^3/uL (1-3.4); LYMPHOCYTES % (AUTO) 13 % (22-44); MD NO; MEAN CORPUSCULAR HEMOGLOBIN 30.7 pg (27.0-34.8); MEAN CORPUSCULAR HGB CONC 32.9 g/dL (32.4-35.8); MEAN CORPUSCULAR VOLUME 93.5 fL (80-100); MEAN PLATELET VOLUME 10.1 fL (7.4-10.4); MONOCYTES # (AUTO) 1.09 x10^3/uL (0.2-0.8); MONOCYTES % (AUTO) 10 % (2-9); NEUTROPHILS # (AUTO) 8.14 x10^3/uL (1.8-6.8); NEUTROPHILS % (AUTO) 75 % (42-75); PLATELET COUNT 165 x10^3/uL (130-400); RED BLOOD COUNT 2.58 x10^6/uL (3.82-5.3); RED CELL DISTRIBUTION WIDTH 17.6 % (9.6-15.2)
[2020-06-22 04:44] LABS: ANION GAP 6 mmol/L (5-15); CALCIUM 7.8 mg/dL (8.5-10.1); CHLORIDE 109 mmol/L (98-107); CREATININE 0.55 mg/dL (0.55-1.02)
[2020-06-22 06:48] VITALS: BP 129/83
[2020-06-22] MEDS: PANTOPRAZOLE 40 MG IV IVPush SCH (09:09)
[2020-06-22] MEDS: CHLORDIAZEPOXIDE 25 MG CAPSULE PO SCH (09:09)
[2020-06-22] MEDS: SODIUM CHLORIDE FLUSH 10ML SYR IVF SCH ×2 (09:10→20:13)
[2020-06-22] MEDS: INSULIN REGULAR LOW DOSE QDAY SQ-INSULIN SCH (10:24)
[2020-06-22] MEDS: ACETAMINOPHEN 500 MG TABLET PO PRN ×2 (10:24→20:12)
[2020-06-22 12:07] VITALS: BP 130/87
[2020-06-22] MEDS: ENOXAPARIN 40 MG/0.4 ML SQ SCH (12:40)
[2020-06-22] MEDS: FILTER, DISP 1.2 MICRON FOR TPN/PVN IV PRN (16:18)
[2020-06-22] MEDS ORDERED: FAT EMULSIONS IV SCH (17:00)
[2020-06-22] MEDS ORDERED: [UNRECOGNIZED DRUG - OTHER] IV SCH (17:00)
[2020-06-22] MEDS ORDERED: DEXTROSE 70% IV SCH (17:00)
[2020-06-22] MEDS ORDERED: AMINO ACID 10% IV SCH (17:00)
[2020-06-22 18:40] VITALS: BP 131/92
[2020-06-22] MEDS: CHLORDIAZEPOXIDE 10 MG CAPSULE PO SCH (20:12)
[2020-06-22] MEDS: LORazepam 2 MG/ML, 1ML IV PRN (22:40)
[2020-06-23] MEDS: DEXTROSE 5% 1,000 ML IV SCH (00:36)
[2020-06-23] MEDS: METRONIDAZOLE PMX 500MG/100ML 100 ML IV SCH ×3 (01:29→16:59)
[2020-06-23 01:33] VITALS: BP 128/86
[2020-06-23] MEDS: VANCOMYCIN 50 MG/ML ORAL SUSP PO SCH ×4 (02:27→22:55)
[2020-06-23] MEDS: PIPERACILLIN/TAZO/PMX 3.375GM 50 ML IV SCH ×4 (03:04→21:49)
[2020-06-23] MEDS: ACETAMINOPHEN 500 MG TABLET PO PRN (03:05)
[2020-06-23 05:30] LABS: BASOPHILS # (AUTO) 0.05 x10^3/uL (0-0.1); BASOPHILS % (AUTO) 0 % (0-1); EOSINOPHILS # (AUTO) 0.21 x10^3/uL (0-0.4); EOSINOPHILS % (AUTO) 2 % (1-7); LYMPHOCYTES # (AUTO) 1.37 x10^3/uL (1-3.4); LYMPHOCYTES % (AUTO) 11 % (22-44); MD NO; MEAN CORPUSCULAR HEMOGLOBIN 30.9 pg (27.0-34.8); MEAN CORPUSCULAR HGB CONC 32.8 g/dL (32.4-35.8); MEAN CORPUSCULAR VOLUME 94.2 fL (80-100); MEAN PLATELET VOLUME 10.1 fL (7.4-10.4); MONOCYTES % (AUTO) 8 % (2-9); NEUTROPHILS # (AUTO) 9.97 x10^3/uL (1.8-6.8); NEUTROPHILS % (AUTO) 79 % (42-75); PLATELET COUNT 181 x10^3/uL (130-400); RED BLOOD COUNT 2.87 x10^6/uL (3.82-5.3); RED CELL DISTRIBUTION WIDTH 17.6 % (9.6-15.2)
[2020-06-23 05:38] LABS: ALANINE AMINOTRANSFERASE 35 U/L (12-78); ALBUMIN 1.6 g/dL (3.4-5.0); ANION GAP 5 mmol/L (5-15); CALCIUM 8.5 mg/dL (8.5-10.1); CHLORIDE 108 mmol/L (98-107); CREATININE 0.54 mg/dL (0.55-1.02)
[2020-06-23 05:46] LABS: ALKALINE PHOSPHATASE 250 U/L (45-117); BILIRUBIN,TOTAL 0.5 mg/dL (0.2-1.0); PREALBUMIN 13.6 mg/dL (20.0-40.0); TOTAL PROTEIN 6.4 g/dL (6.4-8.2)
[2020-06-23 07:20] VITALS: BP 132/63
[2020-06-23] MEDS: SODIUM CHLORIDE FLUSH 10ML SYR IVF SCH ×2 (09:00→21:50)
[2020-06-23] MEDS: INSULIN REGULAR LOW DOSE QDAY SQ-INSULIN SCH (09:24)
[2020-06-23] MEDS: PANTOPRAZOLE 40 MG IV IVPush SCH (09:24)
[2020-06-23] MEDS: CHLORDIAZEPOXIDE 10 MG CAPSULE PO SCH ×2 (09:25→22:55)
[2020-06-23] MEDS: ENOXAPARIN 40 MG/0.4 ML SQ SCH (12:57)
[2020-06-23 13:22] VITALS: BP 133/62
[2020-06-23] MEDS: FILTER, DISP 1.2 MICRON FOR TPN/PVN IV PRN (16:59)
[2020-06-23] MEDS ORDERED: DEXTROSE 70% IV SCH ×2 (17:00)
[2020-06-23] MEDS ORDERED: AMINO ACID 10% IV SCH ×2 (17:00)
[2020-06-23] MEDS ORDERED: [UNRECOGNIZED DRUG - OTHER] IV SCH ×2 (17:00)
[2020-06-23] MEDS ORDERED: FAT EMULSIONS IV SCH ×2 (17:00)
[2020-06-23 18:45] VITALS: BP 114/79
[2020-06-24] MEDS: METRONIDAZOLE PMX 500MG/100ML 100 ML IV SCH ×3 (00:34→17:57)
[2020-06-24] MEDS: DEXTROSE 5% 1,000 ML IV SCH ×2 (00:34→23:49)
[2020-06-24 00:44] VITALS: BP 109/72
[2020-06-24] MEDS: PIPERACILLIN/TAZO/PMX 3.375GM 50 ML IV SCH ×4 (05:01→21:37)
[2020-06-24 06:02] LABS: CALCIUM 9.1 mg/dL (8.5-10.1); CHLORIDE 105 mmol/L (98-107)
[2020-06-24 06:03] LABS: MEAN CORPUSCULAR HEMOGLOBIN 31.1 pg (27.0-34.8); MEAN CORPUSCULAR HGB CONC 33.1 g/dL (32.4-35.8); MEAN CORPUSCULAR VOLUME 93.9 fL (80-100); MEAN PLATELET VOLUME 10.7 fL (7.4-10.4); PLATELET COUNT 218 x10^3/uL (130-400); RED BLOOD COUNT 3.08 x10^6/uL (3.82-5.3); RED CELL DISTRIBUTION WIDTH 17.6 % (9.6-15.2)
[2020-06-24 06:08] LABS: ALANINE AMINOTRANSFERASE 29 U/L (12-78); ALBUMIN 1.9 g/dL (3.4-5.0); ALKALINE PHOSPHATASE 280 U/L (45-117); ANION GAP 7 mmol/L (5-15); BILIRUBIN,TOTAL 0.4 mg/dL (0.2-1.0); CREATININE 0.68 mg/dL (0.55-1.02); TOTAL PROTEIN 6.8 g/dL (6.4-8.2)
[2020-06-24 06:28] LABS: BASOPHILS # (AUTO) 0.04 x10^3/uL (0-0.1); BASOPHILS % (AUTO) 0 % (0-1); EOSINOPHILS # (AUTO) 0.12 x10^3/uL (0-0.4); EOSINOPHILS % (AUTO) 1 % (1-7); LYMPHOCYTES # (AUTO) 1.37 x10^3/uL (1-3.4); LYMPHOCYTES % (AUTO) 9 % (22-44); MD SCAN; MONOCYTES # (AUTO) 1.23 x10^3/uL (0.2-0.8); MONOCYTES % (AUTO) 8 % (2-9); NEUTROPHILS # (AUTO) 12.11 x10^3/uL (1.8-6.8); NEUTROPHILS % (AUTO) 82 % (42-75)
[2020-06-24] MEDS ORDERED: DEXTROSE 4 GM TAB.CHEW NG PRN (07:00)
[2020-06-24] MEDS ORDERED: DOCUSATE 50 MG/5 ML, 10ML UDC NG PRN (07:00)
[2020-06-24] MEDS ORDERED: POLYETHYLENE GLYCOL 17 GM PACKET NG PRN (07:00)
[2020-06-24] MEDS: INSULIN REGULAR LOW DOSE QDAY SQ-INSULIN SCH (07:30)
[2020-06-24] MEDS ORDERED: ONDANSETRON ODT 4 MG NG PRN (08:00)
[2020-06-24] MEDS: PANTOPRAZOLE 40 MG IV IVPush SCH (08:35)
[2020-06-24] MEDS: SODIUM CHLORIDE FLUSH 10ML SYR IVF SCH ×2 (08:36→21:38)
[2020-06-24] MEDS ORDERED: CHLORDIAZEPOXIDE 10 MG CAPSULE NG SCH (09:00)
[2020-06-24 09:02] VITALS: BP 112/78
[2020-06-24] MEDS: VANCOMYCIN 50 MG/ML ORAL SUSP NG SCH ×3 (11:00→23:49)
[2020-06-24 12:05] VITALS: BP 111/74
[2020-06-24] MEDS: ENOXAPARIN 40 MG/0.4 ML SQ SCH (12:49)
[2020-06-24] MEDS: ACETAMINOPHEN 650 MG/20.3 ML UDC NG PRN ×2 (15:32→21:48)
[2020-06-24] MEDS ORDERED: FAT EMULSIONS IV SCH (17:00)
[2020-06-24] MEDS ORDERED: DEXTROSE 70% IV SCH (17:00)
[2020-06-24] MEDS ORDERED: AMINO ACID 10% IV SCH (17:00)
[2020-06-24] MEDS ORDERED: [UNRECOGNIZED DRUG - OTHER] IV SCH (17:00)
[2020-06-24] MEDS: LACTOBACILLUS CHEW TABLET PO SCH ×2 (17:57→21:37)
[2020-06-24 19:26] VITALS: BP 108/67
[2020-06-24] MEDS: ATORVASTATIN 20 MG TABLET PO SCH (21:37)
[2020-06-25] VITALS (12 sets, daily range): BP systolic 113–148; BP diastolic 72–93
[2020-06-25] MEDS: METRONIDAZOLE PMX 500MG/100ML 100 ML IV SCH ×3 (02:09→17:23)
--- NOTE | 2020-06-25 02:35 | NUR ---
[facility] - Fall Risk Medications NOT present and receiving anticoagulants.
[2020-06-25] MEDS: PIPERACILLIN/TAZO/PMX 3.375GM 50 ML IV SCH ×4 (04:14→21:31)
[2020-06-25] MEDS: VANCOMYCIN 50 MG/ML ORAL SUSP NG SCH ×4 (04:49→23:51)
[2020-06-25 05:10] LABS: MEAN CORPUSCULAR HEMOGLOBIN 30.7 pg (27.0-34.8); MEAN CORPUSCULAR HGB CONC 32.6 g/dL (32.4-35.8); MEAN CORPUSCULAR VOLUME 94.3 fL (80-100); PLATELET COUNT 279 x10^3/uL (130-400); RED CELL DISTRIBUTION WIDTH 18.1 % (9.6-15.2)
[2020-06-25 05:17] LABS: ANION GAP 6 mmol/L (5-15); CHLORIDE 103 mmol/L (98-107); CREATININE 0.62 mg/dL (0.55-1.02)
[2020-06-25 05:55] LABS: BASOPHILS # (AUTO) 0.05 x10^3/uL (0-0.1); BASOPHILS % (AUTO) 0 % (0-1); EOSINOPHILS # (AUTO) 0.31 x10^3/uL (0-0.4); EOSINOPHILS % (AUTO) 2 % (1-7); LYMPHOCYTES # (AUTO) 1.52 x10^3/uL (1-3.4); LYMPHOCYTES % (AUTO) 11 % (22-44); MD SCAN; MONOCYTES # (AUTO) 1.44 x10^3/uL (0.2-0.8); MONOCYTES % (AUTO) 11 % (2-9); NEUTROPHILS # (AUTO) 10.42 x10^3/uL (1.8-6.8); NEUTROPHILS % (AUTO) 76 % (42-75)
[2020-06-25] MEDS: INSULIN REGULAR LOW DOSE QDAY SQ-INSULIN SCH (07:30)
[2020-06-25] MEDS: ACETAMINOPHEN 650 MG/20.3 ML UDC NG PRN ×2 (08:39→17:23)
[2020-06-25] MEDS: LACTOBACILLUS CHEW TABLET PO SCH ×3 (08:40→21:16)
[2020-06-25] MEDS: SODIUM CHLORIDE FLUSH 10ML SYR IVF SCH ×2 (08:40→21:24)
[2020-06-25] MEDS: ENOXAPARIN 40 MG/0.4 ML SQ SCH (11:07)
[2020-06-25] MEDS ORDERED: [UNRECOGNIZED DRUG - OTHER] IV SCH (17:00)
[2020-06-25] MEDS ORDERED: FILTER, DISP 1.2 MICRON FOR TPN/PVN IV PRN (17:00)
[2020-06-25] MEDS ORDERED: DEXTROSE 70% IV SCH (17:00)
[2020-06-25] MEDS ORDERED: AMINO ACID 10% IV SCH (17:00)
[2020-06-25] MEDS ORDERED: FAT EMULSIONS IV SCH (17:00)
[2020-06-25] MEDS: ATORVASTATIN 20 MG TABLET PO SCH (21:16)
[2020-06-25] MEDS: SERTRALINE 50MG TABLET PO SCH (21:17)
[2020-06-25] MEDS: DEXTROSE 5% 1,000 ML IV SCH (23:51)
[2020-06-26] MEDS: METRONIDAZOLE PMX 500MG/100ML 100 ML IV SCH ×3 (01:19→17:19)
[2020-06-26 01:37] VITALS: BP 143/89
[2020-06-26] MEDS: PIPERACILLIN/TAZO/PMX 3.375GM 50 ML IV SCH ×4 (04:28→21:44)
[2020-06-26] MEDS: VANCOMYCIN 50 MG/ML ORAL SUSP NG SCH ×4 (05:11→23:05)
[2020-06-26 05:25] LABS: ANION GAP 6 mmol/L (5-15); CALCIUM 9.4 mg/dL (8.5-10.1); CHLORIDE 105 mmol/L (98-107)
[2020-06-26 05:26] LABS: CREATININE 0.67 mg/dL (0.55-1.02)
[2020-06-26] MEDS: INSULIN REGULAR LOW DOSE QDAY SQ-INSULIN SCH ×2 (07:30→11:23)
[2020-06-26 08:14] VITALS: BP 106/72
[2020-06-26] MEDS: LACTOBACILLUS CHEW TABLET PO SCH ×3 (08:55→21:20)
[2020-06-26] MEDS: NALTREXONE HCL 50 MG TABLET PO SCH (08:56)
[2020-06-26] MEDS: SODIUM CHLORIDE FLUSH 10ML SYR IVF SCH ×2 (08:56→21:20)
[2020-06-26] MEDS ORDERED: SERTRALINE 50MG TABLET PO SCH (09:00)
[2020-06-26] MEDS: ENOXAPARIN 40 MG/0.4 ML SQ SCH (12:31)
[2020-06-26 14:27] VITALS: BP 121/86
[2020-06-26] MEDS ORDERED: FAT EMULSIONS IV SCH (17:00)
[2020-06-26] MEDS ORDERED: [UNRECOGNIZED DRUG - OTHER] IV SCH (17:00)
[2020-06-26] MEDS ORDERED: FILTER, DISP 1.2 MICRON FOR TPN/PVN IV PRN (17:00)
[2020-06-26] MEDS ORDERED: AMINO ACID 10% IV SCH (17:00)
[2020-06-26] MEDS ORDERED: DEXTROSE 70% IV SCH (17:00)
[2020-06-26 19:41] VITALS: BP 120/80
[2020-06-26] MEDS: SERTRALINE 50MG TABLET PO SCH (21:20)
[2020-06-26] MEDS: ATORVASTATIN 20 MG TABLET PO SCH (21:20)
[2020-06-27 00:18] VITALS: BP 115/71
[2020-06-27] MEDS: METRONIDAZOLE PMX 500MG/100ML 100 ML IV SCH ×3 (01:16→16:31)
[2020-06-27 02:53] VITALS: BP 170/85
[2020-06-27] MEDS: PIPERACILLIN/TAZO/PMX 3.375GM 50 ML IV SCH ×4 (03:46→22:14)
[2020-06-27] MEDS: VANCOMYCIN 50 MG/ML ORAL SUSP NG SCH ×4 (05:03→22:14)
[2020-06-27 07:29] VITALS: BP 125/75
[2020-06-27] MEDS: LACTOBACILLUS CHEW TABLET PO SCH ×3 (09:06→22:14)
[2020-06-27] MEDS: NALTREXONE HCL 50 MG TABLET PO SCH (09:06)
[2020-06-27] MEDS: SODIUM CHLORIDE FLUSH 10ML SYR IVF SCH ×2 (09:07→22:15)
[2020-06-27] MEDS: INSULIN REGULAR LOW DOSE QDAY SQ-INSULIN SCH (11:23)
[2020-06-27] MEDS: ENOXAPARIN 40 MG/0.4 ML SQ SCH (12:08)
[2020-06-27 13:36] VITALS: BP 117/72
[2020-06-27] MEDS ORDERED: FILTER, DISP 1.2 MICRON FOR TPN/PVN IV PRN (17:00)
[2020-06-27] MEDS ORDERED: FAT EMULSIONS IV SCH (17:00)
[2020-06-27] MEDS ORDERED: AMINO ACID 10% IV SCH (17:00)
[2020-06-27] MEDS ORDERED: [UNRECOGNIZED DRUG - OTHER] IV SCH (17:00)
[2020-06-27] MEDS ORDERED: DEXTROSE 70% IV SCH (17:00)
[2020-06-27 20:44] VITALS: BP 109/69
[2020-06-27] MEDS: ATORVASTATIN 20 MG TABLET PO SCH (22:14)
[2020-06-27] MEDS: SERTRALINE 50MG TABLET PO SCH (22:14)
[2020-06-27] MEDS: ACETAMINOPHEN 650 MG/20.3 ML UDC NG PRN (22:49)
[2020-06-28] MEDS: METRONIDAZOLE PMX 500MG/100ML 100 ML IV SCH (01:22)
[2020-06-28 01:23] VITALS: BP 102/69
[2020-06-28] MEDS: VANCOMYCIN 50 MG/ML ORAL SUSP NG SCH ×4 (04:49→21:32)
[2020-06-28] MEDS: PIPERACILLIN/TAZO/PMX 3.375GM 50 ML IV SCH (04:49)
[2020-06-28 05:59] LABS: CHLORIDE 108 mmol/L (98-107)
[2020-06-28 06:03] LABS: ANION GAP 5 mmol/L (5-15); CALCIUM 8.4 mg/dL (8.5-10.1); CREATININE 0.68 mg/dL (0.55-1.02)
[2020-06-28 06:06] LABS: MEAN CORPUSCULAR HEMOGLOBIN 31.4 pg (27.0-34.8); MEAN CORPUSCULAR VOLUME 95.2 fL (80-100); MEAN PLATELET VOLUME 10.4 fL (7.4-10.4); PLATELET COUNT 309 x10^3/uL (130-400); RED BLOOD COUNT 2.79 x10^6/uL (3.82-5.3); RED CELL DISTRIBUTION WIDTH 18.6 % (9.6-15.2)
[2020-06-28] MEDS: ACETAMINOPHEN 650 MG/20.3 ML UDC NG PRN ×3 (06:29→18:26)
[2020-06-28 06:44] LABS: BASOPHILS # (AUTO) 0.07 x10^3/uL (0-0.1); BASOPHILS % (AUTO) 1 % (0-1); EOSINOPHILS # (AUTO) 0.21 x10^3/uL (0-0.4); EOSINOPHILS % (AUTO) 3 % (1-7); LYMPHOCYTES # (AUTO) 1.16 x10^3/uL (1-3.4); LYMPHOCYTES % (AUTO) 17 % (22-44); MD MORPH REVIEW ONLY; MONOCYTES # (AUTO) 1.09 x10^3/uL (0.2-0.8); MONOCYTES % (AUTO) 15 % (2-9); NEUTROPHILS # (AUTO) 4.52 x10^3/uL (1.8-6.8); NEUTROPHILS % (AUTO) 64 % (42-75)
[2020-06-28 06:45] LABS: <PLATELET ESTIMATE> ADEQUATE; ANISOCYTOSIS 1+; LARGE PLATELETS 1+; POLYCHROMASIA 1+
[2020-06-28 07:27] VITALS: BP 112/74
[2020-06-28] MEDS: LACTOBACILLUS CHEW TABLET PO SCH ×3 (09:26→21:33)
[2020-06-28] MEDS: NALTREXONE HCL 50 MG TABLET PO SCH (09:26)
[2020-06-28] MEDS: SODIUM CHLORIDE FLUSH 10ML SYR IVF SCH ×2 (09:26→21:33)
[2020-06-28] MEDS: INSULIN REGULAR LOW DOSE QDAY SQ-INSULIN SCH (11:23)
[2020-06-28] MEDS: ENOXAPARIN 40 MG/0.4 ML SQ SCH (11:27)
[2020-06-28] MEDS ORDERED: MELATONIN 5 MG TABLET PO PRN (11:30)
[2020-06-28 13:01] VITALS: BP 123/72
[2020-06-28] MEDS ORDERED: [UNRECOGNIZED DRUG - OTHER] IV SCH (17:00)
[2020-06-28] MEDS ORDERED: AMINO ACID 10% IV SCH (17:00)
[2020-06-28] MEDS ORDERED: DEXTROSE 70% IV SCH (17:00)
[2020-06-28] MEDS ORDERED: FAT EMULSIONS IV SCH (17:00)
[2020-06-28 21:29] VITALS: BP 103/65
[2020-06-28] MEDS: SERTRALINE 50MG TABLET PO SCH (21:33)
[2020-06-28] MEDS: ATORVASTATIN 20 MG TABLET PO SCH (21:33)
[2020-06-29] MEDS: DEXTROSE 5% 1,000 ML IV SCH (01:05)
[2020-06-29 01:15] VITALS: BP 115/71
[2020-06-29] MEDS ORDERED: LORazepam 2 MG/ML, 1ML IVPush PRN (04:00)
[2020-06-29] MEDS: VANCOMYCIN 50 MG/ML ORAL SUSP NG SCH ×4 (04:32→23:02)
[2020-06-29] MEDS ORDERED: ZOLPIDEM 5MG TABLET PO PRN (07:00)
[2020-06-29 07:35] VITALS: BP 114/71
[2020-06-29] MEDS: SODIUM CHLORIDE FLUSH 10ML SYR IVF SCH ×2 (09:00→21:00)
[2020-06-29] MEDS: NALTREXONE HCL 50 MG TABLET PO SCH (09:51)
[2020-06-29] MEDS: LACTOBACILLUS CHEW TABLET PO SCH ×3 (09:51→20:52)
[2020-06-29] MEDS: ENOXAPARIN 40 MG/0.4 ML SQ SCH (11:17)
[2020-06-29] MEDS: ACETAMINOPHEN 650 MG/20.3 ML UDC NG PRN (11:20)
[2020-06-29 13:24] VITALS: BP 111/64
[2020-06-29 19:06] VITALS: BP 105/66
[2020-06-29] MEDS: ATORVASTATIN 20 MG TABLET PO SCH (20:52)
[2020-06-29] MEDS: SERTRALINE 50MG TABLET PO SCH (20:52)
[2020-06-30 01:01] VITALS: BP 120/83
[2020-06-30] MEDS: VANCOMYCIN 50 MG/ML ORAL SUSP NG SCH ×4 (05:16→23:13)
[2020-06-30 06:13] LABS: BASOPHILS # (AUTO) 0.11 x10^3/uL (0-0.1); BASOPHILS % (AUTO) 2 % (0-1); EOSINOPHILS # (AUTO) 0.31 x10^3/uL (0-0.4); EOSINOPHILS % (AUTO) 5 % (1-7); LYMPHOCYTES # (AUTO) 2.01 x10^3/uL (1-3.4); LYMPHOCYTES % (AUTO) 31 % (22-44); MD NO; MEAN CORPUSCULAR HEMOGLOBIN 31.2 pg (27.0-34.8); MEAN CORPUSCULAR HGB CONC 32.8 g/dL (32.4-35.8); MEAN CORPUSCULAR VOLUME 95.2 fL (80-100); MEAN PLATELET VOLUME 10.2 fL (7.4-10.4); MONOCYTES # (AUTO) 0.72 x10^3/uL (0.2-0.8); MONOCYTES % (AUTO) 11 % (2-9); NEUTROPHILS # (AUTO) 3.25 x10^3/uL (1.8-6.8); NEUTROPHILS % (AUTO) 51 % (42-75); PLATELET COUNT 348 x10^3/uL (130-400); RED BLOOD COUNT 3.12 x10^6/uL (3.82-5.3); RED CELL DISTRIBUTION WIDTH 17.7 % (9.6-15.2)
[2020-06-30 06:14] LABS: CHLORIDE 106 mmol/L (98-107)
[2020-06-30 06:27] LABS: ALANINE AMINOTRANSFERASE 24 U/L (12-78); ALBUMIN 2.3 g/dL (3.4-5.0); ALKALINE PHOSPHATASE 186 U/L (45-117); ANION GAP 5 mmol/L (5-15); BILIRUBIN,TOTAL 0.3 mg/dL (0.2-1.0); CALCIUM 9.9 mg/dL (8.5-10.1); CREATININE 0.67 mg/dL (0.55-1.02); TOTAL PROTEIN 7.1 g/dL (6.4-8.2)
[2020-06-30 07:29] VITALS: BP 125/84
[2020-06-30] MEDS: SODIUM CHLORIDE FLUSH 10ML SYR IVF SCH ×2 (09:00→21:13)
[2020-06-30] MEDS: LACTOBACILLUS CHEW TABLET PO SCH ×3 (09:07→20:47)
[2020-06-30] MEDS: NALTREXONE HCL 50 MG TABLET PO SCH (09:07)
[2020-06-30] MEDS: ACETAMINOPHEN 650 MG/20.3 ML UDC NG PRN (10:30)
[2020-06-30] MEDS: ENOXAPARIN 40 MG/0.4 ML SQ SCH (11:29)
[2020-06-30 14:38] VITALS: BP 130/87
--- NOTE | 2020-06-30 16:34 | NUR ---
Posted activity sheet with recommendation of assisting pt to ambulate in room to recliner chair for all meals and encourage pt to perform AROM exercises while out of bed. Addendum: 06/30/20 at 1634 by Adal Miller PT Amended: Links added.
[2020-06-30] MEDS: ACETAMINOPHEN 500 MG TABLET NG PRN (18:13)
[2020-06-30 18:55] VITALS: BP 120/72
[2020-06-30] MEDS: ATORVASTATIN 20 MG TABLET PO SCH (20:46)
[2020-06-30] MEDS: SERTRALINE 50MG TABLET PO SCH (20:47)
[2020-06-30] MEDS: TEMAZEPAM 15 MG CAPSULE PO PRN (23:13)
[2020-07-01 00:15] VITALS: BP 142/95
[2020-07-01] MEDS: VANCOMYCIN 50 MG/ML ORAL SUSP NG SCH (05:17)
[2020-07-01 06:51] VITALS: BP 137/90
[2020-07-01] MEDS: SODIUM CHLORIDE FLUSH 10ML SYR IVF SCH ×2 (09:39→21:35)
[2020-07-01] MEDS: NALTREXONE HCL 50 MG TABLET PO SCH (09:39)
[2020-07-01] MEDS: LACTOBACILLUS CHEW TABLET PO SCH ×3 (09:39→21:35)
[2020-07-01] MEDS: VANCOMYCIN 50 MG/ML ORAL SUSP PO SCH ×3 (11:42→22:14)
[2020-07-01] MEDS: ENOXAPARIN 40 MG/0.4 ML SQ SCH (11:43)
[2020-07-01] MEDS: ACETAMINOPHEN 500 MG TABLET NG PRN (12:42)
[2020-07-01 12:58] VITALS: BP 143/93
[2020-07-01 19:16] VITALS: BP 120/78
[2020-07-01] MEDS: ATORVASTATIN 20 MG TABLET PO SCH (21:35)
[2020-07-01] MEDS: SERTRALINE 50MG TABLET PO SCH (21:35)
[2020-07-01] MEDS: TEMAZEPAM 15 MG CAPSULE PO PRN (22:14)
[2020-07-02 00:23] VITALS: BP 125/81
[2020-07-02] MEDS: VANCOMYCIN 50 MG/ML ORAL SUSP PO SCH ×3 (05:33→17:00)
[2020-07-02 08:18] VITALS: BP 148/98
[2020-07-02] MEDS: LACTOBACILLUS CHEW TABLET PO SCH ×2 (08:45→16:00)
[2020-07-02] MEDS: SODIUM CHLORIDE FLUSH 10ML SYR IVF SCH (08:46)
[2020-07-02] MEDS: NALTREXONE HCL 50 MG TABLET PO SCH (08:46)
[2020-07-02] MEDS: ENOXAPARIN 40 MG/0.4 ML SQ SCH (12:00)
[2020-07-02] MEDS ORDERED: NALT50TA PO (14:32)
[2020-07-02] MEDS ORDERED: SERT50TA28 PO (14:32)
[2020-07-02] MEDS ORDERED: METR500T PO (14:32)
[2020-07-02 14:34] VITALS: BP 145/95
== END 2020-07-02 17:54 | disposition home or self-care (01) | DRG 871 ==
LOC: ED 08:34 → EDIP 10:26 → CCU 13:58 → 4WST 06-19 19:10 → 4EST 06-25 14:58 → 3N 06-30 17:12
PROVIDERS: ADMIT Hospitalist; ATTEND Hospitalist
PROC: 02HV33Z Insertion of Infusion Device into Superior Vena Cava, Percutaneous Approach (ICD-10-PCS; principal; 2020-06-13)
PROC: B548ZZA Ultrasonography of Superior Vena Cava, Guidance (ICD-10-PCS; 2020-06-13)
PROC: 5A1945Z Respiratory Ventilation, 24-96 Consecutive Hours (ICD-10-PCS; 2020-06-15)
PROC: 0BH17EZ Insertion of Endotracheal Airway into Trachea, Via Natural or Artificial Opening (ICD-10-PCS; 2020-06-15)
DX: A41.9 Sepsis, unspecified organism (principal); E43 Unspecified severe protein-calorie malnutrition; G93.41 Metabolic encephalopathy; I21.A1 Myocardial infarction type 2; J18.9 Pneumonia, unspecified organism; J96.01 Acute respiratory failure with hypoxia; K65.1 Peritoneal abscess; N17.0 Acute kidney failure with tubular necrosis; A04.72 Enterocolitis due to Clostridium difficile, not specified as recurrent; E87.0 Hyperosmolality and hypernatremia; E87.1 Hypo-osmolality and hyponatremia; E87.2 Acidosis; F10.239 Alcohol dependence with withdrawal, unspecified; J44.0 Chronic obstructive pulmonary disease with (acute) lower respiratory infection; J98.11 Atelectasis; K57.20 Diverticulitis of large intestine with perforation and abscess without bleeding; N13.30 Unspecified hydronephrosis; D64.9 Anemia, unspecified; E11.649 Type 2 diabetes mellitus with hypoglycemia without coma; E78.00 Pure hypercholesterolemia, unspecified; E78.5 Hyperlipidemia, unspecified; E83.42 Hypomagnesemia; E87.6 Hypokalemia; F17.210 Nicotine dependence, cigarettes, uncomplicated; F43.21 Adjustment disorder with depressed mood; I11.0 Hypertensive heart disease with heart failure; I25.10 Atherosclerotic heart disease of native coronary artery without angina pectoris; I48.0 Paroxysmal atrial fibrillation; I50.9 Heart failure, unspecified; K76.0 Fatty (change of) liver, not elsewhere classified; M21.379 Foot drop, unspecified foot; S09.90XA Unspecified injury of head, initial encounter; X58.XXXA Exposure to other specified factors, initial encounter; I95.9 Hypotension, unspecified; Z82.0 Family history of epilepsy and other diseases of the nervous system; Z82.49 Family history of ischemic heart disease and other diseases of the circulatory system; Z79.899 Other long term (current) drug therapy; Z68.20 Body mass index [BMI] 20.0-20.9, adult; Z83.3 Family history of diabetes mellitus; Z83.6 Family history of other diseases of the respiratory system
CPT/HCPCS: 36415; 36600; 74018; 75989; 89055; 96374; 96375; 99291; J3370; J3475; J3490; J7626; 36573; 49406; 71045; 74177; 80048; 80053; 80076; 81001; 82803; 82962; 83540; 83550; 83605; 83735; 83880; 84100; 84132; 84134; 84443; 84478; 84484; 85025; 85610; 85730; 87040; 87070; 87075; 87076; 87077; 87081; 87086; 87186; 87205; 87324; 87493; 93005; 93306; 94002; 94003; 94640; 99156; 99157; C1894; G0378; J0610; J0690; J1170; J1650; J1815; J2250; J2543; J2560; J2704; J3010; J3411; J3480; J7070; Q9967; 92523-GN; C1729; C1751; C1769; C9113; J0330; J1940; J2060; J2270; J2310; J3420; J7030; J7040; J7050

== ENCOUNTER 2021-06-19 13:19 | Emergency (ER) | payer MEDICARE, MEDICAID ==
[~2021-06-19 13:19] MED LIST changes: +ASPI-963 PO; +ATOR20TA37 PO; +HYDR-2214 PO; +LOSA25TA25 PO; +METR500T PO; +NALT50TA PO; +SERT50TA28 PO
== END 2021-06-19 14:06 | disposition left against medical advice (07) ==
LOC: ED 13:25
DX: Z53.21 Procedure and treatment not carried out due to patient leaving prior to being seen by health care provider (principal)